=== PATIENT | female | born 1995 | race Caucasian/White ===

== ENCOUNTER 2023-09-19 21:59 | Emergency (ER) | payer OTHER, SELFPAY ==
[2023-09-19 22:01] VITALS: BP 116/82
--- NOTE | 2023-09-19 23:43 | ED.GENMED ---
History of Present Illness
<TAD Tobias (Lenka) - Last Filed: 09/20/23 01:27>
General
Chief Complaint: Allergic Reaction
Source: patient and significant other (boyfriend)
Exam Limitations: none
Time Seen by Provider: 09/19/23 23:42
Nursing documentation reviewed up to this point in time: agreed with
History of Present Illness
History of Present Illness:
Pt is a 28yo female with PMHx of mast cell activation syndrome, POTS, MVP, celiacs who presents to the ED for mast cell reaction x 3 hours. Pt states around 2030 tonight she touched gasoline and thinks this triggered a mast cell reaction. She
developed flushing to her chest and neck, tightening of her throat, wheezing, coughing, chills, and mouth tingling and numbness. The mouth tingling and numbness is not a usual symptom for her and this resolved within a few minutes. Pt took albuterol
for the wheezing and coughing with improvement in symptoms. She also took Isabel, Pepcid, and Benadryl [employer]. She has an EpiPen at home but did not feel she needed it. Pt states it feel difficult to talk but denies current dyspnea, nasal congestion,
rhinorrhea, diarrhea, abdominal pain or cramping, emesis, hives, rashes, pruritus.
She states the activation of her mast cell 'sent her into a POTS episode', and she developed dizziness, nausea, and chest pain. Symptoms better with laying down, worse with movement. Pt adequately hydrated today. She reports that once her mast cell
activation is under control, her POTS symptoms typically resolve.
Past History
<TAD Tobias (Lenka) - Last Filed: 09/20/23 01:27>
Past History
ED Past Medical History: Asthma, Other (postural orthostatic tachycardia syndrome), Other (mast cell activation syndrome) and Other (celiac)
ED Past Surgical History: Orthopedic
Social History
Tobacco: Non-smoker
Alcohol: Occasional
Personal: Single
Living: with family
Family History
Family History: Other (noncontributory)
Phy Exam
<TAD Tobias (Lenka) - Last Filed: 09/20/23 01:27>
General Physical Exam
General Presentation: no apparent distress (talking in full sentences in room, sitting comfortably in bed, no audible cough or wheeze)
General age: appears stated age
General Skin: warm, dry and flushed (neck and chest)
General Habitus: normal
General Mental: alert
General Hydration: appears well hydrated
ENT Exam
ENT Exam: pharynx normal, lymphnodes and other
Additional ENT: neck tender to palpation along mandible and anterior cervical chain
Eye Exam
Eye Exam: conjunctiva normal
Cardiovascular Exam
Cardiovascular Exam: regular rate/rhythm, no gallop and normal peripheral pulses
Pulmonary Exam
Pulmonary Exam: lungs clear, no respiratory distress, no rales, no crackles, no rhonchi, no stridor, no wheezing and no cough
Gastrointestinal Exam
Gastrointestinal Exam: non tender and soft
Neurological Exam
Neurological Exam: alert and oriented x3
Musculoskeletal Exam
Musculoskeletal Exam: neck pain (tenderness to palpation to entire neck, below mandible)
Course
<TAD Tobias (Lenka) - Last Filed: 09/20/23 01:27>
Orders/Labs/Results
Orders:
Orders
09/20/23 00:08
0.9% Sodium Chloride 1000 ml [Nss] 1,000 ml IV BOLUS
Dexamethasone Sod Phosphate [Decadron] 10 mg IV NOW STA
Diphenhydramine [Benadryl] 12.5 mg IV NOW STA
Vital Signs
Initial and Last Documented VS:
Initial Vital Signs
Temp Pulse Resp BP Pulse Ox
97.8 F 84 22 116/82 100
09/19/23 22:01 09/19/23 22:01 09/19/23 22:01 09/19/23 22:01 09/19/23 22:01
Last Documented Vital Signs
Temp Pulse Resp BP Pulse Ox
97.8 F 84 22 116/82 98
09/19/23 22:01 09/19/23 22:01 09/19/23 22:01 09/19/23 22:01 09/20/23 01:04
<Alec Fuller DO - Last Filed: 09/20/23 01:37>
Orders/Labs/Results
Orders:
Orders
09/20/23 00:08
0.9% Sodium Chloride 1000 ml [Nss] 1,000 ml IV BOLUS
Dexamethasone Sod Phosphate [Decadron] 10 mg IV NOW STA
Diphenhydramine [Benadryl] 12.5 mg IV NOW STA
Vital Signs
Initial and Last Documented VS:
Initial Vital Signs
Temp Pulse Resp BP Pulse Ox
97.8 F 84 22 116/82 100
09/19/23 22:01 09/19/23 22:01 09/19/23 22:01 09/19/23 22:01 09/19/23 22:01
Last Documented Vital Signs
Temp Pulse Resp BP Pulse Ox
97.8 F 84 22 116/82 98
09/19/23 22:01 09/19/23 22:01 09/19/23 22:01 09/19/23 22:01 09/20/23 01:04
<TAD Tobias (Lenka) - Last Filed: 09/20/23 01:27>
MDM/Problems Addressed
Differential Diagnosis Includes:
28 yo female sitting comfortably in bed talking in full sentences. Mild flushing noted to chest and neck. Pt wheezing and coughing improved since original onset of sx 3 hours ago.
In no acute distress upon examination.
DDx: mast cell activation, acute allergic reaction, angioedema
Plan: IV benadryl and IV dexamethasone
Acute Exacerbation and/or Progression of Chronic Illness: Other (mast cell activation syndrome, PEDERSON)
<TAD Tobias (Lenka) - Last Filed: 09/20/23 01:27>
*Critical Care Note
Total Time (30-74mins, 75-104mins- exclusive of procedures): Not Applicable
<TAD Tobias (Lenka) - Last Filed: 09/20/23 01:27>
Update Note
Update Note:
09/20/23, 0 - after receiving IV benadryl, IVF, and IV dexamethasone pt reports she is feeling signficantly better. Her dizziness, nausea, and throat tightness have improved greatly. Will plan to finish fluids, reassess, with plans for discharge if
she continues to improve
<Alec Fuller DO - Last Filed: 09/20/23 01:37>
Update Note
Update Note:
09/20/23, 0 - after receiving IV benadryl, IVF, and IV dexamethasone pt reports she is feeling significantly better. Her dizziness, nausea, and throat tightness have improved greatly. Will plan to finish fluids, reassess, with plans for discharge
if she continues to improve
09/20/2023 0132 AM: Patient is feeling better. Wishes to be discharged home. In no acute distress. Does have EpiPen available to her at home.
ED Attending Note
<TAD Tobias (Lenka) - Last Filed: 09/20/23 01:27>
-
Portions of this chart may have been created with voice recognition software.� Occasional wrong word or��sound alike� substitutions may have occurred due to the inherent limitations of voice recognition software.
Discharge Plan
Departure
Patient Disposition: Home (Routine Discharge)
Date of Disposition: 09/20/23
Time of Disposition: 01:33
Patient with high blood pressure during this ER visit?: No
Condition: Good
Discharge Problem:
Allergic reaction, Mast cell activation syndrome, POTS (postural orthostatic tachycardia syndrome)
Instructions: Angioedema, Allergic Reaction ED
Prescriptions:
New
diphenhydramine HCl [Benadryl] 25 mg capsule
25 mg PO TID PRN (Reason: allergy symptoms) Qty: 14 0RF
prednisone 50 mg Tablet
50 mg PO DAILY Qty: 5 0RF
epinephrine [EpiPen] 0.3 mg/0.3 mL Auto-Injector
0.3 mg IM .STAT PRN (Reason: anaphylaxis) Qty: 1 0RF
No Action
multivitamin [Daily Multiple] 1 EACH tablet
1 ea PO DAILY
Patient Comments:
'when I remember'
cetirizine 10 MG tablet
10 mg PO DAILY
lactobacillus comb no.10 [Probiotic] 1 EACH capsule
1 ea PO DAILY
Patient Comments:
'when I remember'
albuterol sulfate 1 PUFF HFA aerosol inhaler
2 puff inhalation R Q4HPRN PRN (Reason: chest tightness, SOB) Qty: 1 0RF
inulin-chromium picolinate [Fiber Gummies (with chromium)] 1 EACH tablet,chewable
1 ea PO DAILY
Control
1 tab PO DAILY
prednisone 50 mg tablet
50 mg PO DAILY Qty: 4 0RF
epinephrine [EpiPen 2-Cesar] 0.3 mg/0.3 mL auto-injector
0.3 mg IM ONCE PRN (Reason: anaphylaxis) Qty: 2 0RF
Referrals:
Chalo Reed PA-C [Family Provider] -
Activity Restrictions/Additional Instructions:
It was a pleasure meeting you and taking part in your care. We hope for your continued healing and wellness.
Please read discharge instructions in their entirety. However, they are for general education and may not describe your exact diagnosis at discharge. Information on your ER visit and medical conditions were discussed with you along with appropriate
follow up information...
If indicated, please take your medications as instructed and indicated on discharge paperwork.
Please schedule a follow up appointment as directed. Call to schedule an appointment
Please return to the emergency department with ANY change in, persisting, or worsening of symptoms. If any of your symptoms do not improve, or persist, or become more severe within 6-12 hours, please return to the emergency department for further
care.
Please return to the emergency department if you develop a headache, neck pain/stiffness, fever greater than 100.4F, chest pain, shortness of breath, persistent nausea, vomiting, slurred speech, difficulty walking, numbness/tingling, weakness, signs
of infection or any other symptoms that are worrisome to you.
If you have any questions or concerns please do not hesitate to call the Hospital at or E-mail me directly at [email or web address]
Interventions
Interventions:
*Risk Screen - Suicide Last Done: 09/19/23 22:01
*Neglect/Abuse Screening Last Done: 09/19/23 22:01
ED- Cardiac Assessment Last Done: 09/20/23 01:04
ED- Pulmonary Assessment Last Done: 09/20/23 01:04
ED-Skin Assessment Last Done: 09/20/23 01:04
Discharge Date and Time
Print Language: CHINESE
[2023-09-20] MEDS: NSS 1000 IV (00:25)
[2023-09-20] MEDS: BENADRYL 12.5 MG IV (00:26)
[2023-09-20] MEDS: DECADRON 10 MG IV (00:26)
== END 2023-09-20 01:48 | disposition home or self-care (01) ==
LOC: EMR 21:59
PROVIDERS: EMERGENCY PHYSICIAN Student in an Organized Health Care Education/Training Program; FAMILY PHYSICIAN Physician Assistant Medical
DX: T78.40XA Allergy, unspecified, initial encounter (principal); D89.40 Mast cell activation, unspecified; G90.A Postural orthostatic tachycardia syndrome [POTS]; Y92.9 Unspecified place or not applicable; J45.909 Unspecified asthma, uncomplicated; K90.0 Celiac disease
CPT/HCPCS: 99282; 96374; 96375; 96361

== ENCOUNTER 2024-07-11 16:54 | Emergency (ER) | payer OTHER, SELFPAY ==
[2024-07-11] VITALS (11 sets, daily range): BP systolic 104–122; BP diastolic 68–80
[2024-07-11 17:41] LABS: % Basophils 0.4 % (0-2); % Eosinophils 0.7 % (0-6); % Immature Granulocytes 0.1 % (0-0.5); % Lymphocytes 30.5 % (20.5-51.1); % Monocytes 7.8 % (1.7-9.3); % Neutrophils 60.5 % (42.2-75.2); Absolute Eosinophils 0.1 10^3/uL (0-0.7); Absolute Lymphocytes 2.3 10^3/uL (1.2-3.4); Absolute Monocytes 0.6 10^3/uL (0.1-0.6); Absolute Neutrophils 4.5 10^3/uL (1.4-6.5); Hematocrit 37.9 % (37.0-47.0); Hemoglobin 13.4 g/dL (12.0-16.0); Mean Corp Hgb Conc. 35.4 g/dL (33.0-37.0); Mean Corpuscular Hgb 31.8 pg (27.0-31.0); Mean Platelet Volume 8.9 fL (7.4-10.4); Nucleated Red Blood Cells % 0 %; Platelet Count 290 10^3/uL (130-400); Red Blood Cell Count 4.21 10^6/uL (4.20-5.40); White Blood Cell Count 7.5 10^3/uL (4.8-10.8)
[2024-07-11 18:00] LABS: ALT (SGPT) 25 U/L (0-35); AST (SGOT) 23 U/L (14-36); Alkaline Phosphatase 72 U/L (38-126); Blood Urea Nitrogen 10 mg/dl (7-17); Calcium 9.7 mg/dl (8.4-10.2); Carbon Dioxide 22 mmol/L (22-30); Chloride 110 mmol/L (98-107); Glucose 107 mg/dl (70-99); Sodium 142 mmol/L (135-145); Total Bilirubin 0.6 mg/dl (0.2-1.3); Total Protein 7.6 g/dl (6.3-8.2); eGFR > 60.00
[2024-07-11 18:08] LABS: Troponin I < 0.012 ng/ml
--- NOTE | 2024-07-11 20:19 | ED.GENMED ---
History of Present Illness
General
Chief Complaint: Fainting Sensation
Source: patient
Exam Limitations: none
Time Seen by Provider: 07/11/24 20:16
Nursing documentation reviewed up to this point in time: agreed with
History of Present Illness
History of Present Illness:
29-year-old female with history of POTS, mast cell syndrome, Lewis-Danlos, presents for syncopal episode at work earlier today. She states she is having a POTS flare and whenever this happens she has been unable to 'retain any fluids... I been
drinking so much and as soon as I drink it I pee it right out.' While standing at work earlier tonight she felt faint so she sat down and states that she passed out for a few seconds.' She is concerned about being dehydrated and is requesting IV
fluids.
Past History
Past History
ED Past Medical History: Asthma, Other (postural orthostatic tachycardia syndrome), Other (mast cell activation syndrome) and Other (celiac)
ED Past Surgical History: Orthopedic
Social History
Tobacco: Non-smoker
Alcohol: Occasional
Personal: Single
Living: with family
Family History
Family History: Other (noncontributory)
Review of Systems
Review of Systems
Allergies reviewed?: Yes
All Other Systems: ROS reviewed and negative except as documented in HPI and ROS
Constitutional: Denies fever or fatigue
Respiratory: Denies cough or trouble breathing
Cardiac: Reports chest pain and syncope
ABD/GI: Denies abdominal pain, nausea, vomiting or diarrhea
: Reports frequency; Denies dysuria
Skin: Reports no symptoms
Neurological: Reports dizzy; Denies headache or numbness
Endocrine: Reports polyuria
Phy Exam
Physical Exam
Physical Exam:
GENERAL: No acute distress. A&Ox3.
CONSTITUTIONAL: Afebrile.
RESPIRATORY: Regular respirations, nonlabored, lungs clear.
CARDIOVASCULAR: Regular rate and rhythm, no murmurs, no rubs.
GI: Soft, nontender, normal BS
MUSCULOSKELETAL: Moves with ease. Well perfused.
SKIN: Warm, dry, pink
PSYCH: Normal mood and affect. Well kept, interactive and appropriate
NEUROLOGIC: Awake, alert and oriented. No focal neurological deficits
Course
Orders/Labs/Results
Orders:
Orders
07/11/24 17:08
Electrocardiogram (*1) Urgent
Reason for Study: Chest Pain
Cardiac Monitoring- Treatment ONCE
EKG- Treatment ONCE
IV Insert/Care/Rem.- Treatment PRN
O2 Therapy [RESP] Urgent
Titrate/Wean O2 to maintain O2 sat greater than (%): 90
Special Instructions: Maintain sats >/=90%
Pulse Ox/spot Check [RESP] Urgent
Quantity: 1
Special Instructions: ON ROOM AIR
07/11/24 17:25
Complete Blood Count/With Diff Urgent
Comprehensive Metabolic Panel Urgent
Troponin I Urgent
07/11/24 20:29
0.9% Sodium Chloride 1000 ml [Nss] 1,000 ml IV BOLUS
Abnormal Lab Results
07/11/24
17:25
MCH 31.8 H pg
(27.0-31.0)
Chloride 110 H mmol/L
(98-107)
Glucose 107 H mg/dl
(70-99)
07/11/24 17:25
07/11/24 17:25
Vital Signs
Initial and Last Documented VS:
Initial Vital Signs
Temp Pulse Resp BP Pulse Ox
97.9 F 82 16 122/76 100
07/11/24 17:09 07/11/24 17:09 07/11/24 17:09 07/11/24 17:09 07/11/24 17:09
Last Documented Vital Signs
Temp Pulse Resp BP Pulse Ox
97.9 F 85 18 112/75 100
07/11/24 17:09 07/11/24 21:30 07/11/24 21:30 07/11/24 21:00 07/11/24 21:15
MDM/Problems Addressed
Differential Diagnosis Includes:
Dehydration, orthostatic hypotension
MDM/Problems Addressed:
29-year-old female with history of POTS, mast cell syndrome, Lewis-Danlos, presents for syncopal episode at work earlier today. She states she is having a POTS flare and whenever this happens she has been unable to 'retain any fluids... I been
drinking so much and as soon as I drink it I pee it right out.' While standing at work earlier tonight she felt faint so she sat down and states that she passed out for a few seconds.' She is concerned about being dehydrated and is requesting IV
fluids.
Orthostatics neg
9:20 p.m.
After 1 L of IV fluids patient states she is feeling much better and 'that is all I needed ,' is comfortable going home.
*Critical Care Note
Total Time (30-74mins, 75-104mins- exclusive of procedures): Not Applicable
ED Attending Note
-
Portions of this chart may have been created with voice recognition software.� Occasional wrong word or��sound alike� substitutions may have occurred due to the inherent limitations of voice recognition software.
Discharge Plan
Departure
Patient Disposition: Home (Routine Discharge)
Date of Disposition: 07/11/24
Time of Disposition: 21:31
Patient with high blood pressure during this ER visit?: No
Condition: Good
Discharge Problem:
Fainting spell
Instructions: Syncope (Fainting) (DC)
Prescriptions:
No Action
multivitamin [Daily Multiple] 1 EACH tablet
1 ea PO DAILY
Patient Comments:
'when I remember'
cetirizine 10 MG tablet
10 mg PO DAILY
lactobacillus comb no.10 [Probiotic] 1 EACH capsule
1 ea PO DAILY
Patient Comments:
'when I remember'
albuterol sulfate 1 PUFF HFA aerosol inhaler
2 puff inhalation R Q4HPRN PRN (Reason: chest tightness, SOB) Qty: 1 0RF
inulin-chromium picolinate [Fiber Gummies (with chromium)] 1 EACH tablet,chewable
1 ea PO DAILY
Control
1 tab PO DAILY
prednisone 50 mg tablet
50 mg PO DAILY Qty: 4 0RF
epinephrine [EpiPen 2-Cesar] 0.3 mg/0.3 mL auto-injector
0.3 mg IM ONCE PRN (Reason: anaphylaxis) Qty: 2 0RF
diphenhydramine HCl [Benadryl] 25 mg capsule
25 mg PO TID PRN (Reason: allergy symptoms) Qty: 14 0RF
prednisone 50 mg Tablet
50 mg PO DAILY Qty: 5 0RF
epinephrine [EpiPen] 0.3 mg/0.3 mL Auto-Injector
0.3 mg IM .STAT PRN (Reason: anaphylaxis) Qty: 1 0RF
Referrals:
Chalo eRed PA-C [Family Provider]
Activity Restrictions/Additional Instructions:
As we discussed, drink plenty of fluids to stay hydrated.
Interventions
Interventions:
*Risk Screen - Suicide Last Done: 07/11/24 17:09
*Neglect/Abuse Screening Last Done: 07/11/24 17:09
*Nursing Disposition Last Done: 07/11/24 21:54
ED- Cardiac Assessment Last Done: 07/11/24 20:18
ED- Neurological Assessment Last Done: 07/11/24 20:18
Discharge Date and Time
Discharge Date/Time: 07/11/24 22:07
Print Language: GREENLANDIC
[2024-07-11] MEDS: NSS 1000 IV (20:42)
== END 2024-07-11 22:07 | disposition home or self-care (01) ==
LOC: EMR 16:54
PROVIDERS: Emergency Medicine; EMERGENCY PHYSICIAN Emergency Medicine; FAMILY PHYSICIAN Physician Assistant Medical
DX: R55 Syncope and collapse (principal); R35.89 Other polyuria; R07.89 Other chest pain; R11.0 Nausea; J45.909 Unspecified asthma, uncomplicated; G90.A Postural orthostatic tachycardia syndrome [POTS]; D89.40 Mast cell activation, unspecified; Q79.60 Ehlers-Danlos syndrome, unspecified; K90.0 Celiac disease; Z86.16 Personal history of COVID-19; Z88.6 Allergy status to analgesic agent; Z88.5 Allergy status to narcotic agent; Z91.010 Allergy to peanuts; Z91.018 Allergy to other foods
CPT/HCPCS: 99284; 96360; 80053; 84484; 85025; 93005